=== PATIENT | female | born 1995 | race Caucasian/White ===

== ENCOUNTER 2023-11-12 13:32 | Emergency (ER) | payer MEDICAID, OTHER, SELFPAY ==
--- NOTE | ~2023-11-12 | US_ITS ---
EXAMINATION: US OBSTETRICAL ULTRASOUND CLINICAL INFORMATION: 4 weeks . Right abdominal pain. COMPARISON: None available. LMP: 09/26/2023. Gestational age by maternal dates is 6 weeks 5 days. Estimated date of delivery by maternal dates is 07/02/2024. TECHNIQUE: Transabdominal pelvic ultrasound was performed. FINDINGS: There is a single intrauterine gestational sac with visible yolk sac, embryo/fetus, and cardiac activity. There is no significant subchorionic hemorrhage or hematoma. HR: 140 beats per minute. CRL (crown rump length): 1.05 cm (7 weeks 2 days +/- 4 days). HUNTER (estimated date of delivery): 06/28/2024 +/- 4 days. MATERNAL ADNEXA: The right maternal ovary measures 9.9 x 6.5 x 1.5 cm. Small anechoic cyst seen The left maternal ovary measures 6.6 x 5.5 x 4.8. The ovaries are large. Due to enlarged ovaries a suspicion of bilateral adnexal masses is increased. However there is normal arterial and venous flow seen to both ovaries on Doppler exam. There is no significant maternal adnexal mass. No maternal pelvic ascites. US/US OB <= 14 weeks fetus IMPRESSION: 1. Single intrauterine gestation with ultrasound gestational age of 7 weeks 2 days +/- 4 days. 2. Estimated date of delivery is 06/28/2024 +/- 4 days. 3. There are moderately enlarged bilateral ovaries but have a normal Doppler vascular pattern.
--- NOTE | 2023-11-12 13:40 | ED.GENADULT ---
HPI - General Adult General Chief complaint: Abdominal Pain Stated complaint: /abd pain/vomiting Time Seen by Provider: 11/12/23 16:50 Source: patient and RN notes reviewed Mode of arrival: ambulatory Limitations: no limitations History of Present Illness HPI narrative: This is a 28-year-old female, , with no other medical problems, presenting to the emergency department complaints of right lower abdominal pain with associated nausea and vomiting x1 month. Patient states that the date of her last menses was September 20. She states that she recently found out she was with a at home positive test. She [place] OBGYN [place] She states that she has had a constant right lower and suprapubic pain for the last month. States that she has had decreased appetite does not want to drink any fluids secondary to nausea and vomiting. She denies any vaginal bleeding or discharge. Denies any fevers, chills, chest pain, shortness of breath, diarrhea, or urinary symptoms. No other complaints or concerns at this time. MD complaint: +HCG test Onset (ago): day(s) Radiation: non-radiation Quality: aching Pain Consistency: constant Relieving factors: none Exacerbating factors: none Associated symptoms: denies other symptoms Treatments prior to arrival: none Related Data Previous Rx's Medication Instructions Recorded doxylamine 10 mg-pyridoxine (vit 1 tab PO BEDTIME #20 tabs 11/12/23 B6) 10 mg tablet,delayed release doxylamine succinate 25 mg tablet 25 mg PO BEDTIME PRN sleep #30 tabs 11/12/23 (Unisom (doxylamine)) Allergies Allergy/AdvReac Type Severity Reaction Status Date / Time No Known Allergies Allergy Verified 11/12/23 13:42 Review of Systems Review of Systems: Yes all other systems are reviewed and are negative Constitutional: Constitutional: Reports as per [facility] Past Medical History Attestation statement: The following information was validated with the patient. Social History Social History Smoked in Last 30 Days: No Use of substances other than those prescribed or required for medical reasons: No Advance Directives: No Advance Directives Information Provided: No Physical Exam ED Vital Signs: Vital Signs - 24 hr 11/12/23 13:42 11/12/23 17:38 11/12/23 17:40 Temperature 98.2 F Pulse Rate 89 89 90 Respiratory Rate 18 Blood Pressure 124/77 103/63 111/73 Pulse Oximetry 98 Oxygen Delivery Method Room Air 11/12/23 17:41 11/12/23 17:45 11/12/23 19:19 Temperature 98.7 F 98.9 F Pulse Rate 96 91 93 Respiratory Rate 16 16 Blood Pressure 119/80 114/74 112/76 Pulse Oximetry 98 98 Oxygen Delivery Method Room Air Room Air BMI result Body Mass Index 26.1 Const General: cooperative, comfortable and no acute distress Orientation/consciousness: patient oriented x3 Limitations: no limitations HENMT Head: Yes normal to inspection, Yes normocephalic and Yes atraumatic Ears: hearing grossly normal bilaterally General nose exam: Normal external nose present Face and sinus: Yes normal facial exam Mouth: Normal oral and palatal mucosa present, oropharynx normal and moist mucous membranes Throat: Yes posterior oropharynx normal Eyes General: appearance normal, both eyes and all related structures Eyelids: Yes eyelids normal Conjunctivae: conjunctivae normal Sclerae: sclerae normal Pupils: Equal, round and reactive pupils present EOM: EOMs intact bilaterally Neck Neck: Yes normal visual inspection, Yes full ROM and Yes no lymphadenopathy Lymphatic: no lymphadenopathy noted Chest Chest palpation & inspection: normal inspection of the chest Resp Effort & Inspection: normal respiratory effort and able to speak in complete sentences Auscultation: clear to auscultation bilaterally, no crackles, no rales, no rhonchi and no wheezes Cardio Rate: regular rate Rhythm: regular rhythm Heart sounds: S1 normal heart sound present and S2 normal heart sound present GI Other: Mild suprapubic tenderness to palpation on examination. No rebound or guarding. Inspection: Yes normal to inspection Skin General skin exam: no rashes or lesions noted Trauma: no lacerations or abrasions Wounds: no wounds Neuro General: patient oriented x3 and moves all extremities Cranial nerves: Yes Equal, round and reactive pupils present Extrem General: Yes normal to inspection Right upper extremity: normal to inspection Left upper extremity: normal to inspection Right lower extremity: normal to inspection Left lower extremity: normal to inspection Course Course Course Narrative: RME:?28 yo female, approx 4 wks , here for eval of right sided abd pain and inability tolerate PO intake x1 month. she tested positive for via at home test. She has not followed up with OBGYN. no OTC meds at home. denies fever, chills, vaginal bleeding, vaginal discharge, dysuria or hematuria. labs, UA and US ordered Full HPI, ROS and PE to be performed by the primary ED provider. Reevaluation(s) Reevaluation #1: Orthostatic vital signs performed, she does not appear to be orthostatic at this time. Given that she has not been able to eat or drink anything today, I discussed administering IV fluids. Also advised getting Rh type given abdominal pain. Patient and partner adamantly refused and would like to be discharged home. Patient states that she feels okay and does not want to receive any medications at this time. Discussed the importance of following up with OBGYN, advised to call with an appointment. She has no vaginal bleeding, her vital signs are stable. Given strict return precautions. She understands agrees with plan. Patient stable for discharge. Time: 18:09 Medications Administered Discontinued Medications Generic Name Dose Route Start Last Admin Trade Name Freq PRN Reason Stop Dose Admin Sodium Chloride 1,000 mls @ 999 mls/hr 11/12/23 18:26 11/12/23 19:06 Ns IV 11/12/23 19:26 Not Given .Q1H1M ONE Ondansetron HCl 4 mg 11/12/23 18:29 11/12/23 19:06 Ondansetron Hcl 4 Mg/2 Ml Vial IVPUSH 11/12/23 18:30 Not Given ONCE ONE Medical Decision Making Medical Decision Making [facility] Narrative: This is a 28-year-old female, , presenting to the emergency department with complaints of suprapubic pain, nausea and vomiting x1 month. She recently found out she was . She does not have an OBGYN who she can follow-up with. Denies any urinary symptoms. On arrival, vital signs within normal limits. She is nontoxic appearing, with moist mucous membranes. She has under no acute distress. Abdomen with mild tenderness palpation in the suprapubic region. Plan: Labs, UA, ultrasound Differential Diagnosis Differential Diagnoses: The differential diagnosis associated with the presentation includes Ectopic , , hyperemesis gravidarum, gastritis, gastroenteritis Admission/Observation Consideration of admission/observation: Escalation of care including admission/observation considered Lab Data [facility] Lab Attestation statement: I reviewed the patient's lab results. No leukocytosis, stable H&H, chemistry within normal limits. Urine appears to be contaminated. She has no urinary complaints, therefore will hold off on treating with antibiotics until culture returns. 11/12/23 13:55 11/12/23 13:55 Labs: Lab Results 11/12/23 11/12/23 Range/Units 13:55 17:10 WBC 9.1 (4.8-10.8) X10*3/uL RBC 5.35 (4.20-5.50) X10*6/uL Hgb 11.9 L (12.0-16.0) g/dl Hct 37.3 (37.0-47.0) % MCV 69.7 L (80.0-98.0) fL MCH 22.2 L (27.0-33.0) pg MCHC 31.9 (31.0-35.0) g/dl RDW 14.8 (11.0-16.0) % Plt Count 344 (160-400) X10*3/uL MPV 10.0 (9.4-12.3) fL Immature Gran % (Auto) 0.2 (0.0-0.4) % Neut % (Auto) 70.9 (45-73) % Lymph % (Auto) 18.6 L (20-40) % Troup % (Auto) 9.5 (2-11) % Eos % (Auto) 0.4 (0-4) % Baso % (Auto) 0.4 (0-2) % Lymph # (Auto) 1.7 (1.2-4.9) X10*3/uL Troup # (Auto) 0.9 (0.1-1.2) X10*3/uL Eos # (Auto) 0.0 (0.0-0.4) X10*3/uL Baso # (Auto) 0.0 (0.0-0.2) X10*3/uL Abs Immat Gran (auto) 0.02 (0.00-0.03) X10*3/uL Absolute Neuts (auto) 6.5 (2.0-8.3) x10*3/uL Absolute Nucleated RBC 0.000 (0.0-0.012) X10*3/uL Nucleated RBC % (auto) 0.0 (0.0-0.2) /100WBC Sodium 138 (135-145) mmol/L Potassium 4.9 (3.3-5.1) mmol/L Chloride 104 (96-108) mmol/L Carbon Dioxide 26 (22-29) mmol/L Anion Gap 13 (12-20) BUN 4 L (9-16) mg/dL Creatinine 0.58 (0.5-1.4) mg/dL Estim Creat Clear Calc 145.4 Estimated GFR > 60 Random Glucose 94 (60-115) mg/dL Calcium 9.8 (8.4-10.2) mg/dL Total Bilirubin 0.3 (0.0-1.0) mg/dL AST 15 (5-31) U/L ALT 15 (0-31) U/L Alkaline Phosphatase 65 (39-117) U/L Total Protein 7.1 (6.5-8.0) g/dL Albumin 4.3 (3.5-5.0) g/dL Beta HCG, Quant [id number] mIU/mL Urine Color Yellow Urine Appearance Clear Urine pH 5.5 (5.0-9.0) Ur Specific [place] 1.020 (1.005-1.025) Urine Protein Negative (Neg-Trace) mg/dL Urine Glucose (UA) Negative (Negative) mg/dL Urine Ketones 80 (Negative) mg/dL Urine Blood Trace H (Negative) Urine Nitrite Negative (Negative) Ur Leukocyte Esterase Small (1+) H (Negative) Urine RBC 6-10 H (0-2) /HPF Urine WBC 11-20 H (0-5) /HPF Ur Squamous Epith Cells 6-10 (0-2) /HPF Urine Bacteria Trace (None Seen) Hyaline Casts 0-2 (0-2) /LPF Urine Test POSITIVE H (NEGATIVE) Independent Interpretation I performed an independent interpretation of an: Ultrasound Interpretation: FINDINGS: There is a single intrauterine gestational sac with visible yolk sac, embryo/fetus, and cardiac activity. There is no significant subchorionic hemorrhage or hematoma. HR: 140 beats per minute. CRL (crown rump length): 1.05 cm (7 weeks 2 days +/- 4 days). HUNTER (estimated date of delivery): 06/28/2024 +/- 4 days. MATERNAL ADNEXA: The right maternal ovary measures 9.9 x 6.5 x 1.5 cm. Small anechoic cyst seen The left maternal ovary measures 6.6 x 5.5 x 4.8. The ovaries are large. Due to enlarged ovaries a suspicion of bilateral adnexal masses is increased. However there is normal arterial and venous flow seen to both ovaries on Doppler exam. There is no significant maternal adnexal mass. No maternal pelvic ascites. US/US OB <= 14 weeks fetus IMPRESSION: 1. Single intrauterine gestation with ultrasound gestational age of 7 weeks 2 days +/- 4 days. 2. Estimated date of delivery is 06/28/2024 +/- 4 days. 3. There are moderately enlarged bilateral ovaries but have a normal Doppler vascular pattern. Radiology Impression Discussion of test interpretation with radiology: I have reviewed the radiologist's reading. Independent Historian Clinical information obtained from an independent historian. History obtained from or confirmed by: Spouse External Record Review External record reviewed: Inpatient record, Office record, Outpatient record, Prior outpatient labs, Prior outpatient radiology, Primary care record and Outside ED record Discharge Plan Discharge Clinical Impression: Nausea and vomiting in Patient Disposition: Home, Self-Care Instructions: Nausea and Vomiting in (ED), Acute Nausea and Vomiting (ED) Additional Instructions: Your seen in the emergency department due to nausea and vomiting in . In the emergency room we performed labs. Your labs are reassuring. Your urine appear to be contaminated, does not appear to be infected at this time. We will call you if we need to start you on antibiotics. Your ultrasound was performed, this revealed a single intrauterine gestation with a gestational age of 7 weeks and 2 days +/-4 days. Estimated date of delivery 06/28/2024 +/-4 days. For abdominal pain you may take Tylenol as needed. I am recommending you take a vitamin. Take prescribed medication as directed. Small meals throughout the day can also help. Avoid spicy or fried foods. Suzanne federico can also alleviate symptoms. Eat crackers prior to getting up in the morning as this can help with your symptoms. You need to find an OBGYN to follow-up with. Call to make an appointment. If any new or worsening symptoms occur including but not limited to vaginal bleeding, worsening abdominal pain, please return for re-evaluation. [address] [phone] Prescriptions: New Unisom (doxylamine) 25 mg tablet 25 mg PO BEDTIME PRN (Reason: sleep) Qty: 30 0RF doxylamine-pyridoxine (vit B6) 10-10 mg tablet,delayed release (DR/EC) 1 tab PO BEDTIME Qty: 20 0RF Interventions: ED Discharge Assessment Last Done: 11/12/23 19:19 Discharge Date/Time: 11/12/23 19:20
[2023-11-12 13:42] VITALS: BP 124/77; PULSE 89; RESP 18; TEMP 36.8; O2SAT 98; BMI 26.1
[2023-11-12 14:01] LABS: MANUAL DIFF FLAG NO
[2023-11-12 14:02] LABS: Basophils Percent Auto 0.4 % (0-2); Eosinophils Percent Auto 0.4 % (0-4); Hematocrit 37.3 % (37.0-47.0); Hemoglobin 11.9 g/dl (12.0-16.0); Imm Gran Abs Auto 0.02 X10*3/uL (0.00-0.03); Imm Gran Pct Auto 0.2 % (0.0-0.4); Lymphocytes Absolute Auto 1.7 X10*3/uL (1.2-4.9); Lymphocytes Percent Auto 18.6 % (20-40); Mean Corpuscular HGB Conc 31.9 g/dl (31.0-35.0); Mean Corpuscular Hemoglobin 22.2 pg (27.0-33.0); Mean Corpuscular Volume 69.7 fL (80.0-98.0); Monocytes Absolute Auto 0.9 X10*3/uL (0.1-1.2); Monocytes Percent Auto 9.5 % (2-11); Neutrophils Absolute Auto 6.5 x10*3/uL (2.0-8.3); Neutrophils Percent Auto 70.9 % (45-73); Platelet Count 344 X10*3/uL (160-400); Red Blood Count 5.35 X10*6/uL (4.20-5.50); Red Cell Distribution Width 14.8 % (11.0-16.0); White Blood Count 9.1 X10*3/uL (4.8-10.8)
[2023-11-12 14:25] LABS: Alanine Aminotransferase 15 U/L (0-31); Albumin Level 4.3 g/dL (3.5-5.0); Alkaline Phosphatase 65 U/L (39-117); Anion Gap 13 (12-20); Aspartate Amino Transferase 15 U/L (5-31); Bilirubin Total 0.3 mg/dL (0.0-1.0); Blood Urea Nitrogen 4 mg/dL (9-16); Calcium 9.8 mg/dL (8.4-10.2); Carbon Dioxide 26 mmol/L (22-29); Chloride 104 mmol/L (96-108); Creatinine Clr Calc Pharmacy 145.4; Estimated Glomerular Filt Rate > 60; Glucose Random 94 mg/dL (60-115); Potassium 4.9 mmol/L (3.3-5.1); Sodium 138 mmol/L (135-145); Total Protein 7.1 g/dL (6.5-8.0)
[2023-11-12 17:17] LABS: Appearance Urine Clear; Color Urine Yellow; Glucose Urine UA Negative (Negative); Leukocyte Esterase Urine Small (1+) (Negative); Nitrite Urine Negative (Negative); PH 5.5 (5.0-9.0); UMIC TRIGGER UACC YES; Urine Blood Trace (Negative); Urine Ketones 80 mg/dL (Negative); Urine Protein Negative (Neg-Trace)
[2023-11-12 17:18] LABS: UPreg QC Valid YES; Urine Pregnancy POSITIVE (NEGATIVE)
[2023-11-12 17:22] LABS: Bacteria Urine Trace (None Seen); Hyaline Casts Urine 0-2 /LPF (0-2); UACC Culture Trigger YES
[2023-11-12 17:38] VITALS: BP 103/63; PULSE 89
[2023-11-12 17:40] VITALS: BP 111/73; PULSE 90
[2023-11-12 17:41] VITALS: BP 119/80; PULSE 96
[2023-11-12 17:45] VITALS: BP 114/74; PULSE 91; RESP 16; TEMP 37.1; O2SAT 98
[2023-11-12 19:19] VITALS: BP 112/76; PULSE 93; RESP 16; TEMP 37.2; O2SAT 98
== END 2023-11-12 19:20 | disposition home or self-care (01) ==
PROVIDERS: Physician Assistant Medical; Emergency Provider Emergency Medicine
DX: O21.0 Mild hyperemesis gravidarum (principal); Z3A.14 14 weeks gestation of pregnancy; Z79.899 Other long term (current) drug therapy
CPT/HCPCS: 36415; 76801; 80053; 81001; 81025; 84702; 85025; 87086; 87147; 99284